=== PATIENT | male | born 1995 | race Caucasian/White ===

== ENCOUNTER 2016-12-03 03:16 | Emergency (ER) | payer OTHER ==
[~2016-12-03] VITALS: Ht 182.9 cm; Wt 79.4 kg
[2016-12-03 03:25] VITALS: BP 137/92
[2016-12-03] MEDS: LIDOCAINE 1% / SOD BICARB 8.4% 20 ML VIAL. IJ ONE (04:00)
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
== END 2016-12-03 04:17 | disposition home or self-care (01) ==
LOC: ER 03:16
DX: S01.112A Laceration without foreign body of left eyelid and periocular area, initial encounter (principal); W51.XXXA Accidental striking against or bumped into by another person, initial encounter; Y93.89 Activity, other specified; Y99.8 Other external cause status; Y92.89 Other specified places as the place of occurrence of the external cause
CPT/HCPCS: 12013; 99283-25